=== PATIENT | male | born 1960 | race Caucasian/White ===

== ENCOUNTER 2020-11-02 10:49 | Outpatient (CLI) | payer MEDICARE, SELFPAY ==
--- NOTE | ~2020-11-02 | CT_ITS ---
EXAMINATION: CT chest wo con DATE: 11/02/2020 11:37 INDICATION: Pulmonary nodules/lesions TECHNIQUE: Computed tomography (CT) of the chest was performed without intravenous contrast. Automate d exposure control and iterative reconstruction technique were employed. Exam dose: 94.05 mGy-cm tot al exam DLP. COMPARISON: 11/05/2019 CT chest FINDINGS: Thoracic aortic and great vessel calcifications as well as coronary artery calcification. N o thoracic aortic aneurysm. Normal heart size. No pericardial or pleural effusion. Stable mild bilateral apical scarring. Mild emphysema. Bilateral primarily peripheral and apical bleb s. Stable irregular discoid likely scarring in the right upper lobe (series 4 images 29-34). Stable small middle lobe opacities (series 4 image 93) are noted peripherally, unchanged since 020 Stable 9 mm left lower lobe calcified pulmonary granuloma (series 4 image 75). Stable 12.5 mm left lower lobe calcified pulmonary granuloma (series 4 image 79). Very small hiatal hernia. Normal morphology of the adrenal glands. Lower cervical anterior cervical spine surgical fusion. Diffuse osteopenia. Degenerative spurring of the thoracic spine. No suspicious osteolytic or osteobla stic lesions are noted. IMPRESSION: No significant change since 11/05/2019; consider [address] chest follow-up Reviewed, dictated and finalized at Location [facility]. Reviewed, dictated and finalized at location B. RAL ACCOUNTING MANAGER
== END 2020-11-02 10:50 | disposition home or self-care (01) ==
PROVIDERS: PCP Family Medicine; Visit Provider Internal Medicine Medical Oncology
DX: R91.8 Other nonspecific abnormal finding of lung field (principal)
CPT/HCPCS: 71250

== ENCOUNTER → 2023-03-22 09:38 | Outpatient (CLI) | payer MEDICARE, SELFPAY ==
--- NOTE | ~2023-03-22 | MR_ITS ---
EXAMINATION: MR brain/brain stem wo con DATE: 03/22/2023 10:18 INDICATION: Memory disturbance. Alteration of awareness. TECHNIQUE: Magnetic resonance imaging (MRI) of the brain and brainstem was performed without intraven ous contrast. COMPARISON: None. FINDINGS: There are scattered areas of nonspecific increased T2-weighted signal intensity in the cere bral white matter, which is within normal limits for the patient's age. There is an old lacunar infar ct in the left basal ganglia. There is no intracranial hemorrhage, acute infarction, or abnormal intr acranial mass lesion. The ventricles are normal in size. There are likely changes of ocular lens repl acement surgeries. The paranasal sinuses are clear. The mastoid air cells are normal. IMPRESSION: 1. Old lacunar infarct in the left basal ganglia. Reviewed, dictated and finalized at location A.
== END ==
PROVIDERS: PCP Nurse Practitioner; Visit Provider Nurse Practitioner
DX: R41.3 Other amnesia (principal)
CPT/HCPCS: 70551

== ENCOUNTER → 2023-07-10 12:36 | Outpatient (CLI) | payer MEDICARE, SELFPAY ==
--- NOTE | ~2023-07-10 | XR_ITS ---
EXAMINATION: XR lumbar spine 2-3V DATE: 07/10/2023 13:42 INDICATION: Low back pain TECHNIQUE: Anteroposterior and lateral views of the lumbar spine, and cone-down lateral view of the l umbosacral junction were obtained. COMPARISON: None. FINDINGS: There are 5 mm of retrolisthesis of L5 on S1. Vertebral body alignment is otherwise normal. There is no fracture. There is severe loss of intervertebral disc space height at L4-5 and L5-S1. Sm all degenerative osteophytes project from the anterior endplates of multiple vertebral bodies. There is severe facet joint osteoarthritis of the lower lumbar spine. Calcified atherosclerosis is noted. IMPRESSION: 1. Severe lower lumbar spondylosis without acute findings. Reviewed, dictated and finalized at location F.
--- NOTE | ~2023-07-10 | MR_ITS ---
EXAMINATION: MR cervical spine wo con DATE: 07/10/2023 13:12 INDICATION: Neck pain. TECHNIQUE: Magnetic resonance imaging (MRI) of the cervical spine was performed without intravenous c ontrast. COMPARISON: Cervical spine MRI 06/14/2017 FINDINGS: There is 8 degrees levocurvature of thoracic spine. There is kyphosis of cervical spine. Th ere is 2 mm anterolisthesis of C3 on C4 and C4 on C5 and 2 mm retrolisthesis of C5 on C6. There are c hanges of anterior fusion procedure at C6-C7 with healed interbody bone graft and anterior plate and screws. There is moderately decreased disc height at C4-C5 and severely decreased disc height at C5-C 6 and C6 C7-T1. The spinal cord to intensity is normal. The following disc levels are specifically di scussed: C2-C3: The disc does not extend beyond the endplate margin. There is mild right uncovertebral joint o steoarthritis. There is severe bilateral facet joint osteoarthritis. There is mild bilateral neural f oraminal stenosis. There is no central canal stenosis. C3-C4: The disc does not extend beyond the endplate margin. There is moderate bilateral uncovertebral joint osteoarthritis. There is severe bilateral facet joint osteoarthritis. There is moderate bilate ral neural foraminal stenosis. There is no central canal stenosis. C4-C5: The disc is bulging. There is severe bilateral uncovertebral joint osteoarthritis. There is mo derate right and severe left facet joint osteoarthritis. There is mild left neural foraminal stenosis . There is mild central canal stenosis. There is ventral indentation of the spinal cord C5-C6: The disc is bulging. There is severe bilateral uncovertebral joint osteoarthritis. There is mi ld left facet joint osteoarthritis. There is moderate left neural foraminal stenosis. There is mild c entral canal stenosis with ventral indentation of spinal cord. C6-C7: There is moderate bilateral uncovertebral joint hypertrophy. There is no facet joint hypertrop hy. There is no neural foraminal stenosis. There is no central canal stenosis. C7-T1: The disc is bulging. There is severe bilateral uncovertebral joint osteoarthritis. There is mo derate and severe left facet joint osteoarthritis. There is mild bilateral neural foraminal stenosis. There is mild central canal stenosis. IMPRESSION: 1. Severe cervical spondylosis, worsened from 06/14/17. 2. Anterior fusion procedure at C6-C7. Reviewed, dictated and finalized at location A.
== END ==
PROVIDERS: PCP Family Medicine; Visit Provider Nurse Practitioner Family
DX: M47.896 Other spondylosis, lumbar region (principal); M47.892 Other spondylosis, cervical region; Z98.1 Arthrodesis status
CPT/HCPCS: 72100; 72141

== ENCOUNTER 2023-08-27 21:09 | Inpatient (IN) | payer MEDICARE, SELFPAY ==
[2023-08-27] VITALS (13 sets, daily range): BP systolic 112–134; BP diastolic 82–94; PULSE 80–109; RESP 18–20; TEMP 36.7–36.8; O2SAT 100
--- NOTE | ~2023-08-27 | XR_ITS ---
EXAMINATION: XR chest ET placement Exam Date/Time: 08/27/2023 21:20 CDT HISTORY: s/p intubation Comparison: CT chest 11/05/2019. RESULT: Lines, tubes, and devices: Endotracheal tube terminating 5.9 cm above the stella. NG tube terminatin g over the stomach. Lungs and pleura: Moderate reticular opacities diffusely in the right lung and in the left upper tiffany g. No focal consolidation. Cardiomediastinal silhouette: Stable. Other: No acute osseous or upper abdominal finding. IMPRESSION: Endotracheal tube terminates 5.9 cm above the stella, consider advancing 2 cm. Moderate asymmetric interstitial edema. Reviewed, dictated and finalized at location K.
--- NOTE | ~2023-08-27 | XR_ITS ---
EXAM: XR abdomen gastric tube insert DATE: 08/27/2023 21:31 HISTORY: NG TUBE . COMPARISON: None available. FINDINGS: NG tube tip over the stomach, side port at the GE junction. Clear lung bases. Normal bowel gas pattern. No organomegaly. No abnormal abdominal calcification. Regional bones and soft tissues no rmal for age. IMPRESSION: Shallow positioned NG tube, consider advancing 4 cm. Reviewed, dictated and finalized at location K.
--- NOTE | ~2023-08-27 | XR_ITS ---
EXAMINATION: XR chest 1V portable DATE: 08/29/2023 05:47 INDICATION: Acute respiratory failure. Cardiac arrest. Chronic obstructive pulmonary disease. TECHNIQUE: A single frontal view of the chest was obtained. COMPARISON: Chest single view 08/28/2023 FINDINGS: There are lucencies in the lungs, consistent with emphysema. A calcified left lung nodule i s consistent with old granulomatous disease. There is mild scarring in right lung upper lobe. No pleu ral effusion or pneumothorax. The heart size is normal. A right upper extremity peripherally inserted central venous catheter (PICC) is seen with tip in the superior vena cava. The endotracheal tube tip is 6.3 cm above the stella. The nasogastric tube tip is in the stomach. There are changes of anterio r fusion procedure in cervical spine. IMPRESSION: 1. Mild scarring in right lung upper lobe. 2. Emphysema. Reviewed, dictated and finalized at location E.
--- NOTE | ~2023-08-27 | XR_ITS ---
EXAMINATION: XR abdomen gastric tube rechec DATE: 08/28/2023 08:55 INDICATION: Orogastric tube advancement. TECHNIQUE: An upright view of the abdomen was obtained. COMPARISON: Abdomen radiograph 08/27/2023 FINDINGS: There are no dilated loops of bowel. The orogastric tube tip is in the stomach. A calcified left lung nodule is consistent with old granulomatous disease. IMPRESSION: 1. Orogastric tube tip in the stomach. Reviewed, dictated and finalized at location E.
--- NOTE | ~2023-08-27 | XR_ITS ---
EXAMINATION: XR chest 1V portable INDICATION: Acute respiratory failure TECHNIQUE: Portable AP chest at 0531 hours COMPARISON: 08/29/2023 FINDINGS: The endotracheal tube ends approximately 6.7 cm above the stella. The nasogastric tube is f ollowed as far as the stomach. Its tip is beyond the inferior margin of the radiograph. A right upper extremity PICC ends with its tip in the superior vena cava. The lungs are free of acute opacities. N o pleural effusion or pneumothorax. The cardiomediastinal silhouette is normal. A calcified nodule of the left midlung zone is consistent with old granulomatous disease. IMPRESSION: 1. No acute cardiopulmonary abnormality. Reviewed, dictated and finalized at location F.
--- NOTE | ~2023-08-27 | XR_ITS ---
EXAMINATION: XR chest 1V portable DATE: 08/28/2023 07:47 INDICATION: Respiratory failure. Cardiac arrest. TECHNIQUE: A single frontal view of the chest was obtained on 2 radiographs. COMPARISON: Chest view 08/27/2023, chest CT 11/02/20 FINDINGS: There are lucencies in the lungs, consistent with emphysema. There is mild scarring in righ t upper lobe. A calcified left lung nodule is consistent with old granulomatous disease. There is no pneumonia, pleural effusion, or pneumothorax. The heart size is normal. The endotracheal tube tip is 6.0 cm above the stella. The nasogastric tube tip is in the stomach. There are changes of anterior fu carroll procedure in cervical spine. IMPRESSION: 1. Mild scarring in right lung upper lobe. 2. Emphysema. Reviewed, dictated and finalized at location E.
--- NOTE | ~2023-08-27 | CT_ITS ---
EXAMINATION: CT brain wo con DATE: 08/28/2023 00:38 INDICATION: Cardiac arrest. TECHNIQUE: Computed tomography (CT) of the head was performed without intravenous contrast. The mA wa s adjusted according to patient size. Iterative reconstruction technique was employed. The dose-lengt h product was 605.33 mGy-cm. COMPARISON: Brain MRI 03/22/2023 FINDINGS: There is old lacunar infarct in the left basal ganglia. There is no intracranial hemorrhage , acute infarction, or abnormal intracranial mass lesion. The ventricles are normal in size. There ar e likely changes of ocular lens replacement surgeries. There is mild mucosal thickening in the parana torsten sinuses. The mastoid air cells are normal. IMPRESSION: 1. Old lacunar infarct in the left basal ganglia. Reviewed, dictated and finalized at location E.
--- NOTE | 2023-08-27 21:13 | PC.NURSE ---
Pt intubated by Dr. Mcguire at 2112 using 20 mg etomidate, 100 mg succ via verbal order. 7.5 tube inserted to 25 at the lip, placement verified by xray, chest rise and fall, and breath sounds.
--- NOTE | 2023-08-27 21:13 | ECG_ITS ---
Measurements Intervals [place] Rate: 103 P: 78 [place]: 176 QRS: -62 QRSD: 104 T: 76 QT: 324 QTc: 425 Interpretive Statements SINUS TACHYCARDIA VENTRICULAR TRIPLET AND VENTRICULAR PREMATURE COMPLEXES POSSIBLE LEFT ATRIAL ENLARGEMENT INCOMPLETE RIGHT BUNDLE BRANCH BLOCK LEFT ANTERIOR FASCICULAR BLOCK BASELINE WANDER- I, AVL, AVF ABNORMAL ECG NO PREVIOUS ECG AVAILABLE FOR COMPARISON Electronically Signed On 08-28-2023 8:16:55 CDT by Juvencio Guzman D.O.
[2023-08-27] MEDS: FENTANYL 2,500MCG/NS250ML(*CRX 2,500 MCG/250 ML BAG IV CONT (21:41)
[2023-08-27] MEDS: MIDAZOLAM 100MG/NS 100ML(*CRX) 100 MG/100 ML BAG IV CONT (21:41)
[2023-08-27 21:42] LABS: Hematocrit 44.9 % (42.0-52.0); Mean Corpuscular HGB Conc 31.2 g/dl (32-36); Mean Corpuscular Hemoglobin 31.5 pg (26-34); Mean Corpuscular Volume 100.9 fl (80-100); Mean Platelet Volume 11.9 fl (7.4-10.4); Platelet Count Result 263 k/mm3 (150-375); Red Blood Count 4.45 M/mm3 (4.6-6.20); Red Cell Distribution Width 13.8 % (11.5-14.5); White Blood Count 15.2 K/mm3 (4.5-10.0)
--- NOTE | 2023-08-27 21:43 | ED.CPR ---
HPI - CPR General Chief Complaint: Cardiac Arrest/CPR Stated Complaint: ROSC Time Seen by Provider: 08/27/23 21:17 History of Present Illness HPI narrative: Patient is a 62-year-old male presenting with cardiac arrest. History obtained from EMS. They state that his witnessed him become unresponsive and she started CPR. On EMSs arrival, he was in PEA. He received 2 rounds of epinephrine with ROSC. Supraglottic device placed and patient brought in. Further history limited secondary to acuity of condition. Related Data Home Medications Medication Instructions Recorded Confirmed albuterol sulfate 90 mcg/actuation 2 puff inhalation Q8H PRN 08/28/23 08/28/23 aerosol inhaler Shortness Of Breath Or Wheezing aspirin 325 mg tablet 325 mg PO DAILY 08/28/23 08/28/23 hydrocodone 7.5 mg-acetaminophen 1 tablet PO Q8H PRN Moderate Pain 08/28/23 08/28/23 325 mg tablet (Scale Score 5-6) ipratropium 0.5 mg-albuterol 3 mg 3 ml inhalation Q4H PRN Shortness 08/28/23 08/28/23 (2.5 mg base)/3 mL nebulization Of Breath soln metoprolol succinate 50 mg 50 mg PO DAILY 08/28/23 08/28/23 tablet,extended release 24 hr omeprazole 40 mg capsule,delayed 40 mg PO DAILY 08/28/23 08/28/23 release Allergies Allergy/AdvReac Type Severity Reaction Status Date / Time amoxicillin Allergy Hives Verified 08/28/23 07:45 oxycodone AdvReac Unknown Verified 08/27/23 22:20 Review of Systems Review of Systems: All systems reviewed & are unremarkable except as noted in HPI and below PMFSH Family History Family History Grandparent No problems noted. Father Lung cancer Mother Lung cancer Social History Social History Years smoked: 47 Smoking status: Current every day smoker Tobacco type: cigarettes Alcohol intake: never Substance use: never Substance use type: does not use Spiritual care concerns: No Exam Narrative: GENERAL: Unresponsive HEAD: Normocephalic, atraumatic. EYES: PERRLA and EOMI. ENT: Mucous membranes dry NECK: Supple. CHEST: I-gel in place, diffuse wheezing with each bagged breath HEART: Regular rate and rhythm. Normal peripheral pulses. ABDOMEN: Soft, nondistended EXTREMITIES: Normal range of motion. No edema. SKIN: Warm, dry, no rash. NEURO: Unresponsive PSYCH: Unresponsive Course Vital Signs Vital signs: Vital Signs Pulse Rate 109 H 08/27/23 21:03 Respiratory Rate 18 08/27/23 21:03 Temperature 102.1 F H 08/31/23 04:54 Pulse Rate 70 08/30/23 19:30 Respiratory Rate 18 08/30/23 18:00 Blood Pressure 145/85 H 08/30/23 18:00 Pulse Oximetry 82 L 08/30/23 19:30 Oxygen Delivery Room Air 08/30/23 19:27 Fraction of Inspired Oxygen 40 08/30/23 16:18 Procedures Intubation Intubation #1: Intubation Date: 08/27/23 Intubation Time: 21:49 sedative: Etomidate Mg Given: 20 paralytic: Succinylcholine Mg Given: 100 Laryngoscope: other (glidescope) Tube Size (cm): 7.5 Method of Intubation: orotracheal Number of Attempts: 1 Tube Secured Depth (cm): 25 Tube Secured Location: lips Tube Placement Confirmation: visualized tube passing through cords, equal breath sounds bilaterally, no breath sounds over epigastrium and confirmation by capnometry Patient Tolerated Procedure: well Intubation Complications: none Additional Comments: Chest x-ray with ET tube approximately 6 cm above the stella, ET tube advanced 2 cm MDM - Cardiac Arrest/CPR MDM Narrative Medical decision making narrative: Patient is a 62-year-old male presenting after cardiac arrest. On arrival, i-gel is in place. Diffuse wheezing with each bag breath. Patient intubated, please see procedure note below for further detail. He continues to have pulses and is maintaining an adequate blood pressure
[2023-08-27 21:52] LABS: Lipase 262 U/L (23-300); Magnesium 2.6 mg/dL (1.6-2.3); Prothrombin Time 13.5 Seconds (11.1-14.7)
[2023-08-27 21:53] LABS: Partial Thromboplastin Time 33.5 SECONDS (22.3-36.8)
[2023-08-27] MEDS: methylPREDNISolone SOD SUCC 125 MG VIAL IV PUSH (21:54)
[2023-08-27] MEDS: CEFEPIME 2 GM/NS 50 ML 2 GM/50 ML BAG IVPB (21:54)
[2023-08-27] MEDS: SODIUM CHLORIDE 0.9% IV 1,000 ML 999 ML IV CONT (21:57)
[2023-08-27 22:02] LABS: Lactic Acid Reflex 7.6 mmol/L (0.7-2.0); NT Pro B Type Natriuretic Pept 233 pg/mL (19.9-100)
[2023-08-27 22:03] LABS: Alanine Aminotransferase 48 U/L (6-50); Albumin Level 4.2 g/dL (3.5-5.1); Alkaline Phosphatase 69 U/L (38-126); Anion Gap 11 mmol/L (8-16); Aspartate Amino Transferase 66 U/L (17-59); Bilirubin,Total 0.5 mg/dL (0.2-1.3); Blood Urea Nitrogen 21 mg/dL (9-20); Calcium 9.1 mg/dL (8.4-10.2); Carbon Dioxide 25 mmol/L (22-30); Chloride 96 mmol/L (98-107); Estimated Glomerular Filt Rate > 60; Glucose 296 mg/dL (65-110); Potassium 8.9 mmol/L (3.4-5.0); Sodium 132 mmol/L (137-145)
[2023-08-27 22:04] LABS: Troponin I < 0.012 ng/mL (0.000-0.034)
[2023-08-27 22:08] LABS: Band Neutrophils Percent 4 % (0-6); Eosinophils Percent Manual 2 % (0-4); Large Platelets Present; Lymphocytes Absolute Manual 4.86 K/mm3 (1.1-4.5); Monocytes Absolute Manual 0.91 K/mm3 (0.1-0.90); Monocytes Percent Manual 6 % (3-9); Neutrophils Absolute Manual 9.12 K/mm3 (1.3-6.7); Neutrophils Percent Manual 56 % (46-73); Nucleated Red Blood Cells 1 %; Total Cells Counted 100
[2023-08-27 22:09] LABS: Platelet Estimate Adequate (Adequate); Schistocytes None Seen (NORMAL)
[2023-08-27 22:10] LABS: Hypochromasia 1+ (NORMAL)
[2023-08-27] MEDS: ALBUTEROL SULFATE NEB 2.5 MG/3 ML INH 10 MG INHALATION (22:14)
[2023-08-27 22:15] LABS: Appearance Urine Clear (Clear); Bacteria Urine None Seen /hpf; Bilirubin Urine Negative (Negative); Blood Urine Trace (Negative); Color Urine Yellow (Yellow); Glucose Urine UA Negative (Negative); Hyaline Casts Urine Present /lpf; Ketones Urine Negative (Negative); Leukocyte Esterase Ur Negative LEU/UL (Negative); Nitrate Urine Negative (Negative); Protein Urine 1+ mg/dL (Negative); Specific Grav Ur 1.025 (1.001-1.035); Squamous Epithelial Cell Urine None seen /hpf (Few); WBC Urine 0-5 /hpf; pH Urine 5.5 (5.0-9.0)
[2023-08-27] MEDS: IPRATROPIUM BR 0.02% INH SOLN 0.5 MG/2.5 ML VIAL INHALATION (22:15)
[2023-08-27 22:16] LABS: Add Urine Microscopic? YES
[2023-08-27 22:20] LABS: Influenza A QL RT-PCR Negative (Negative); Influenza B QL RT-PCR Negative (Negative); SARS-CoV-2 RNA PCR Negative (Negative)
[2023-08-27 22:28] LABS: Base Excess ABG -5.5 mEq/l (+/-2.0); Fractional Inspired Oxygen 50 %; HCO3 ABG 23.6 mEq/l (22.0-26.0); Oxygen Content ABG 18.1 %vol (16.0-22.0); Oxygen Saturation ABG 98.2 % (95.0-100.0); Oxyhemoglobin 94.8 % THb (90.0-100.0); PO2 ABG 141.9 mmHg (80.0-100.0); PO2 FiO2 Ratio Arterial Blood 2.84 %; Total Hemoglobin 13.4 g/dL (12.0-18.0)
[2023-08-27 22:30] LABS: pH ABG 7.192 (7.350-7.450)
[2023-08-27 22:31] LABS: Arterial Blood Gas PEEP 5 cmH2O; Arterial Blood Gas Tidal Volume 450 ml; Arterial Blood Gas Vent Mode CMV; Arterial Blood Gas Ventilator rate 18 /MIN; Device VENTILATOR; PCO2 ABG 62.8 mmHg (35.0-45.0); Site Drawn RIGHT BRACHIAL
[2023-08-27] MEDS: INSULIN HUMAN REGULAR (*BKC) 100 UNITS/ML 10 UNITS IV PUSH (22:35)
[2023-08-27] MEDS: SODIUM POLYSTYRENE SULFONONATE 15 GM/60 ML BTL 30 GM PO (22:35)
[2023-08-27] MEDS: CALCIUM GLUCONATE 1,000 MG/10 ML VIAL 1000 MG IV PUSH (22:35)
[2023-08-27] MEDS: SODIUM BICARBONATE 8.4% 50 MEQ/50 ML SYRINGE IV PUSH (22:35)
[2023-08-27] MEDS: DEXTROSE 50% 25 GM/50 ML SYRINGE IV PUSH (22:35)
[2023-08-27] MEDS: FUROSEMIDE INJ 40 MG/4 ML VIAL IV PUSH (23:04)
[2023-08-27 23:11] LABS: Glucose Point of Care 216 mg/dl (65-105)
--- NOTE | 2023-08-27 23:27 | PC.NURSE ---
Report given to MAHAD Delarosa. Care of pt transferred, all questions addressed.
[2023-08-28] VITALS (47 sets, daily range): BP systolic 90–162; BP diastolic 55–104; PULSE 77–111; RESP 12–29; TEMP 36.4–38; O2SAT 93–100; BMI 21.2; BMI 21.3
--- NOTE | 2023-08-28 | ECHO_ITS ---
Patient Info Name: Brent Sandoval Age: 62 years : 1960 Gender: Male Ht: 68 in Wt: 139 lbs BSA: 1.74 m2 HR: 78 bpm BP: 119 / 55 mmHg Heart Rhythm: Sinus Rhythm Technical Quality: Fair Exam Date: 08/28/2023 10:52 AM Exam Location: Echo Lab Exam Room: ICU1 Patient Status: Inpatient Admit Date: 08/28/2023 Staff Ordering Physician: Will Borja MD Waste Transportation Technician: Fabiola Bland RDCS Attending Provider: Vandana Elizalde MD Referring Physician: Jonh QUAN; Exam Type: CA echo doppler color flow Study Info Indications - S/P CARDIAC ARREST Complete two-dimensional, color flow and Doppler transthoracic echocardiogram is performed. Summary 1. Complete two-dimensional, color flow and Doppler transthoracic echocardiogram is performed. 2. Left ventricular chamber dimension is normal. 3. Left ventricular systolic function is normal, estimated at 65-70%. 4. Left ventricular septal wall motion is abnormal with septal motion related to bundle branch block. 5. The left ventricular diastolic function is grade I diastolic dysfunction. 6. Right ventricular systolic function is normal. 7. There is trace mitral valve regurgitation. 8. There is mild tricuspid valve regurgitation. Left Ventricle Left ventricular chamber dimension is normal. Left ventricular systolic function is normal, estimated at 65-70%. There is no increased left ventricular wall thickness. Left ventricular septal wall motion is abnormal with septal motion related to bundle branch block. The left ventricular diastolic function is grade I diastolic dysfunction. Right Ventricle Right ventricular chamber dimension is normal. Right ventricular systolic function is normal. Left Atria Left atrial chamber dimension is normal. Right Atria Right atrial chamber dimension is normal. Aortic Valve The aortic valve is probable trileaflet. There is no aortic valve stenosis. There is no aortic valve regurgitation. There is mild aortic valve calcification. Pulmonic Valve The pulmonic valve is not well visualized. Mitral Valve There is trace mitral valve regurgitation. Tricuspid Valve There is mild tricuspid valve regurgitation. Pericardium/Pleural There is no pericardial effusion. Inferior Vena Cava Normal inferior vena cava with >50% collapse upon inspiration consistent with normal right atrial pressure, 3 mmHg. Aorta The aortic root size at the sinus of Valsalva is normal. Left Ventricular Outflow Tract Name Value Normal LVOT 2D LVOT Diameter 2.0 cm LVOT Doppler LVOT Peak Gradient 7 mmHg LVOT Mean Gradient 4 mmHg LVOT VTI 22 cm LVOT Stroke Volume 69 ml LVOT CO 18.9 l/min LVOT CI 10.9 l/min/m2 Pulmonic Valve Name Value Normal PV Doppler PV Peak Gradient 7 m
[2023-08-28 00:39] LABS: Reflex Lactic Acid Yes or No Add Lactic
[2023-08-28] MEDS: VANCOMYCIN 1,250 MG/NS 250 ML 1,250 MG/250 ML BAG 166.67 MG IVPB (01:00)
[2023-08-28] MEDS: SODIUM CHLORIDE 0.9% IV 1,000 ML 999 ML IV CONT (01:00)
[2023-08-28 01:28] LABS: Anion Gap 6 mmol/L (8-16); Blood Urea Nitrogen 25 mg/dL (9-20); Carbon Dioxide 31 mmol/L (22-30); Chloride 103 mmol/L (98-107); Estimated CRCL calculation 71 ml/min; Estimated Glomerular Filt Rate > 60; Glucose 86 mg/dL (65-110); Lactic Acid Reflex 2.9 mmol/L (0.7-2.0); Potassium 3.7 mmol/L (3.4-5.0); Sodium 140 mmol/L (137-145)
[2023-08-28 01:58] LABS: Troponin I < 0.012 ng/mL (0.000-0.034)
--- NOTE | 2023-08-28 01:59 | PM.IMHP ---
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 Patient was eventually intubated in the ER and spread glottic airway device removed, present treatment steroid antibiotic. Initial labs showed hyperkalemia of 8.2 the patient also got treatment for these. Currently sedated with stable vital signs. Review of Systems Review of Systems: Unable to obtain as patient is intubated and sedated however denied any other symptoms aside as documented in HPI [facility] Family History Family History (Updated 08/28/23 @ 04:05 by Kimberly Rocha RN) Grandparent No problems noted. Father Lung cancer Mother Lung cancer Social History Social History Years smoked: 47 Smoking status: Current every day smoker Tobacco type: cigarettes Alcohol intake: never Substance use: never Substance use type: does not use Spiritual care concerns: No Meds Home Medications and Allergies Home Medications Medication Instructions Recorded Confirmed Type albuterol sulfate 90 mcg/actuation 2 puff inhalation Q8H PRN 08/28/23 08/28/23 History aerosol inhaler Shortness Of Breath Or Wheezing hydrocodone 7.5 mg-acetaminophen 1 tablet PO Q8H PRN Moderate Pain 08/28/23 08/28/23 History 325 mg tablet (Scale Score 5-6) omeprazole 40 mg capsule,delayed 40 mg PO DAILY 08/28/23 08/28/23 History release Allergies Allergy/AdvReac Type Severity Reaction Status Date / Time amoxicillin Allergy Hives Verified 08/28/23 04:22 oxycodone AdvReac Unknown Verified 08/27/23 22:20 Vital Signs Vital Signs - 24 hr 08/27/23 21:41 08/27/23 21:41 08/27/23 21:31 Temperature 98.2 F Pulse Rate 95 95 99 Respiratory Rate 18 18 18 Blood Pressure Pulse Oximetry 100 Oxygen Delivery Fraction of Inspired Oxygen 08/27/23 21:45 08/27/23 21:48 08/27/23 21:55 Temperature 98.2 F 98.1 F Pulse Rate 93 95 88 Respiratory Rate 20 19 19 Blood Pressure 124/91 H 120/87 Pulse Oximetry 100 100 100 Oxygen Delivery Fraction of Inspired Oxygen 08/27/23 22:00 08/27/23 22:01 08/27/23 22:15 Temperature Pulse Rate 88 84 80 Respiratory Rate 18 18 18 Blood Pressure 112/86 Pulse Oximetry 100 100 Oxygen Delivery Fraction of Inspired Oxygen 08/27/23 22:20 08/27/23 22:32 08/27/23 22:34 Temperature Pulse Rate 86 104 H Respiratory Rate 18 18 Blood Pressure 120/82 Pulse Oximetry 100 Oxygen Delivery Mechanical Ventilation Fraction of Inspired Oxygen 40 08/27/23 23:52 08/28/23 01:01 08/28/23 01:55 Temperature 97.6 F Pulse Rate 94 93 88 Respiratory Rate 19 21 H 18 Blood Pressure 134/94 H 128/94 H 127/90 Pulse Oximetry 100 100 100 Oxygen Delivery Fraction of Inspired Oxygen Exam Narrative: GENERAL: Unresponsive, intubated and sedated HEAD: Normocephalic, atraumatic. EYES: PERRLA and EOMI. ENT:? Mucous membranes dry, ETT in place was secured NECK: Supple. CHEST: Mild bilateral expiratory wheeze HEART: Regular rate and rhythm. Normal peripheral pulses. ABDOMEN: Soft, nondistended EXTREMITIES: Normal range of motion.? No edema. SKIN: Warm, dry, no rash. NEURO: Unresponsive PSYCH: Unresponsive H&P: Results Labs Labs: Short CBC 08/27/23 Range/Units 21:32 WBC 15.2 H (4.5-10.0) K/mm3 Hgb 14.0 (14.0-18.0) g/dL Hct 44.9 (42.0-52.0) % Plt Count 263 (150-375) k/mm3 [facility] 08/27
[2023-08-28 02:30] LABS: Alveolar/Arterial O2 Gradient 210.8 mmHg; Base Excess ABG 0.9 mEq/l (+/-2.0); Fractional Inspired Oxygen 100 %; HCO3 ABG 28.2 mEq/l (22.0-26.0); Oxygen Content ABG 19.9 %vol (16.0-22.0); Oxygen Saturation ABG 99.8 % (95.0-100.0); Oxyhemoglobin 97.6 % THb (90.0-100.0); PCO2 ABG 56.4 mmHg (35.0-45.0); PO2 ABG 445.8 mmHg (80.0-100.0); PO2 FiO2 Ratio Arterial Blood 4.46 %; Site Drawn RIGHT BRACHIAL; Total Hemoglobin 13.6 g/dL (12.0-18.0); pH ABG 7.317 (7.350-7.450)
[2023-08-28 02:31] LABS: Arterial Blood Gas PEEP 5 cmH2O; Arterial Blood Gas Tidal Volume 450 ml; Arterial Blood Gas Vent Mode CMV; Arterial Blood Gas Ventilator rate 18 /MIN; Device VENTILATOR
[2023-08-28 02:55] LABS: Influenza A QL RT-PCR Negative (Negative); Influenza B QL RT-PCR Negative (Negative); SARS-CoV-2 RNA PCR Negative (Negative)
--- NOTE | 2023-08-28 03:02 | PC.NURSE ---
This patient, Brent Sandoval, was admitted to Intensive Care Unit-1. Patient/family oriented to hospital policies and general routines including ID bracelet, bed and alarms, visiting hours, pain management, procedures, bathroom and other care routines, personal items, smoking policy, room service/diet, and visiting hours. Information on how to activate the Rapid Response Team has been discussed. Patient/Family are encouraged to report perceived risks to care and to ask questions if they do not understand what they are told or what they should do.
[2023-08-28] MEDS: VANCOMYCIN 1,000 MG/NS 250 ML 1,000 MG/250 ML BAG 250 MG IVPB ×2 (03:15→13:37)
[2023-08-28] MEDS: SODIUM CHLORIDE 0.9% IV 1,000 ML 100 ML IV CONT (03:15)
[2023-08-28] MEDS: MIDAZOLAM HCL (*CRX) 2 MG/2 ML VIAL IV PUSH (03:24)
[2023-08-28 03:39] LABS: MRSA (PCR) NOT DETECTED (NOT DETECTE)
[2023-08-28 04:50] LABS: Alveolar/Arterial O2 Gradient 230.5 mmHg; Base Excess ABG 0.8 mEq/l (+/-2.0); Fractional Inspired Oxygen 50 %; HCO3 ABG 27.6 mEq/l (22.0-26.0); Oxygen Content ABG 17.9 %vol (16.0-22.0); Oxygen Saturation ABG 91.8 % (95.0-100.0); Oxyhemoglobin 92.4 % THb (90.0-100.0); PCO2 ABG 52.8 mmHg (35.0-45.0); PO2 ABG 66.6 mmHg (80.0-100.0); PO2 FiO2 Ratio Arterial Blood 1.33 %; Total Hemoglobin 13.8 g/dL (12.0-18.0); pH ABG 7.336 (7.350-7.450)
[2023-08-28 04:51] LABS: Device VENTILATOR; Modified Allen's Test Pass; Site Drawn LEFT BRACHIAL
[2023-08-28 04:52] LABS: Arterial Blood Gas PEEP 5 cmH2O; Arterial Blood Gas Tidal Volume 450 ml; Arterial Blood Gas Vent Mode CMV; Arterial Blood Gas Ventilator rate 18 /MIN
[2023-08-28 04:59] LABS: Basophils Absolute Auto 0.1 K/mm3 (0.0-0.1); Basophils Percent Auto 0.3 % (0.2-1.2); Hematocrit 38.7 % (42.0-52.0); Hemoglobin 12.5 g/dL (14.0-18.0); Immature Granulocyte Absolute 0.19 K/mm3 (0.00-0.031); Immature Granulocyte Percent A 0.9 % (0-0.5); Lymphocytes Absolute Auto 0.34 K/mm3 (0.9-3.2); Lymphocytes Percent Auto 1.7 % (18.3-44.2); Mean Corpuscular HGB Conc 32.3 g/dl (32-36); Mean Corpuscular Hemoglobin 31.3 pg (26-34); Mean Platelet Volume 11.6 fl (7.4-10.4); Monocytes Absolute Auto 0.5 K/mm3 (0.1-0.6); Monocytes Percent Auto 2.3 % (2.6-8.5); Neutrophils Percent Auto 94.8 % (45.5-73.1); Platelet Count Result 200 k/mm3 (150-375); Red Blood Count 3.99 M/mm3 (4.6-6.20); Red Cell Distribution Width 13.7 % (11.5-14.5); White Blood Count 20.1 K/mm3 (4.5-10.0)
[2023-08-28 05:30] LABS: Anion Gap 7 mmol/L (8-16); Blood Urea Nitrogen 26 mg/dL (9-20); Calcium 8.2 mg/dL (8.4-10.2); Carbon Dioxide 28 mmol/L (22-30); Chloride 104 mmol/L (98-107); Estimated CRCL calculation 83 ml/min; Estimated Glomerular Filt Rate > 60; Glucose 133 mg/dL (65-110); Potassium 3.6 mmol/L (3.4-5.0); Sodium 139 mmol/L (137-145)
[2023-08-28] MEDS: CEFEPIME 2 GM/NS 50 ML 2 GM/50 ML BAG IVPB ×3 (05:32→21:18)
[2023-08-28] MEDS: levETIRAcetam 1000MG/NACL100ML 1,000 MG/100 ML BAG 400 MG IVPB ×3 (06:14→16:58)
[2023-08-28 06:38] LABS: Troponin I < 0.012 ng/mL (0.000-0.034)
[2023-08-28] MEDS: methylPREDNISolone SOD SUCC 40 MG VIAL IV PUSH ×4 (08:11→23:53)
[2023-08-28] MEDS: ENOXAPARIN 40 MG/0.4 ML SYRINGE SUB-Q (08:11)
[2023-08-28] MEDS: PANTOPRAZOLE SODIUM IV 40 MG VIAL IV PUSH (08:11)
[2023-08-28] MEDS: ALBUTEROL SULFATE NEB 2.5 MG/3 ML INH INHALATION ×4 (08:29→20:38)
[2023-08-28] MEDS: IPRATROPIUM BR 0.02% INH SOLN 0.5 MG/2.5 ML VIAL INHALATION ×4 (08:29→20:37)
[2023-08-28] MEDS: LORazepam INJ (*CRX) 2 MG/ML VIAL IV PUSH ×2 (08:30→11:49)
--- NOTE | 2023-08-28 09:30 | WPDCNINT ---
Assessment and Plan Assessment and plan (1) Acute respiratory failure: Code(s): J96.00 - Acute respiratory failure, unspecified whether with hypoxia or hypercapnia Status: Acute Assessment and Plan: Acute respiratory illness likely related to COPD exacerbation, respiratory muscle weakness secondary to ALS, decreased cough response, pneumonia, -intubated on 08/27/2023 -on CMV mode of ventilation, peep of 5, 50% FiO2 -chest x-ray this morning: Mild scarring in right lung upper lobe.. Emphysema -continue cefepime and vancomycin (08/27) Sedated with fentanyl and Versed, maintain RASS of 0 -continue bronchodilators -add Pulmicort (2) Cardiac arrest: Code(s): I46.9 - Cardiac arrest, cause unspecified Status: Acute Assessment and Plan: Cardiac arrest with ROSC in around 22-24 minutes per documentation and per spouse. As soon as she found him unresponsive and not breathing, she started CPR for about 10 minutes before EMS arrived, and thereafter it took about 12-14 minutes for ROSC. EMS placed a supraglottic airway, was being bagged to the ER where he was intubated. -cardiac arrest could be related to respiratory as well as arrhythmia due to hyperkalemia -found to be hyperkalemic with a potassium of 8.9 which was treated and has normalized -EKG showed incomplete right bundle-branch block, sinus tachycardia, no ST elevations -troponins negative x3 -will consult Cardiology -obtain echocardiogram, -myoclonic jerks likely related to hypoxic injury. Continue Keppra and p.r.n. Ativan -neurology been consulted, will require EEG at some point and paste repeat brain CT (3) COPD exacerbation: Code(s): J44.1 - Chronic obstructive pulmonary disease with (acute) exacerbation Status: Acute Assessment and Plan: Patient has a history of COPD, shortness of breath at baseline, according the patient has had weakness of his respiratory muscle, decreased cough due to his ALS. -was found unresponsive secondary to not breathing and then went into a PEA arrest -continue mechanical ventilation, bronchodilators and steroids (4) ALS (amyotrophic lateral sclerosis): Code(s): G12.21 - Amyotrophic lateral sclerosis Status: Acute Assessment and Plan: Patient follows with Dr. Arcos at [facility] for neuromuscular disorder -was diagnosed with ALS on August 07, 2023 -weakness of upper extremities, possible respiratory muscle weakness (5) Hyperkalemia: Code(s): E87.5 - Hyperkalemia Status: Acute Assessment and Plan: Patient presented with hyperkalemia with a potassium level of 8.7 -hyperkalemia was treated in the ER -potassium levels have normalized, will continue to Plan DVT prophylaxis: Lovenox Stress ulcer prophylaxis: Protonix Nutrition: Will start tube feeds Code Status: Full code Critical Care Time Spent: 51 minutes Discussed with patient's and daughter at bedside and in rounds and updated on patient's condition and plan of care. I answered all the questions. Also discussed regarding code status, they will get back to me. Due to a high probability of clinically significant, life threatening deterioration, the patient required my highest level of preparedness to intervene emergently and I personally spent this critical care time directly and personally managing the patient. This critical care time included obtaining a history; examining the patient; pulse oximetry; ordering and review of studies; arranging urgent treatment with development of a management plan; evaluation of patient's response to treatment; frequent reassessment; and discussions with other providers. It was exclusive of separately billable procedures and treating other patients and teaching time. Please see Assessment and Plan section and the rest of the note for further information on patient assessment and treatment This dictation may have been done utilizing a voice krishan
[2023-08-28] MEDS: ACETAMINOPHEN ELIXIR 325 MG/10.15 ML UDC 650 MG PO (10:32)
[2023-08-28] MEDS: metroNIDAZOLE 500 MG/ISO 100ML 500 MG/100 ML BAG 100 MG IVPB ×2 (10:32→17:02)
[2023-08-28] MEDS: BUDESONIDE RESPULE NEB 0.5 MG/2 ML AMP INHALATION ×2 (12:27→20:37)
[2023-08-28] MEDS: MIDAZOLAM 100MG/NS 100ML(*CRX) 100 MG/100 ML BAG IV CONT (12:34)
[2023-08-28] MEDS: FENTANYL 2,500MCG/NS250ML(*CRX 2,500 MCG/250 ML BAG IV CONT (12:34)
[2023-08-28 13:23] LABS: Glucose Point of Care 210 mg/dl (65-105)
[2023-08-28] MEDS: VALPROIC ACID INJ 500 MG in DEXTROSE 5% 100 ML 100 MG IVPB ×3 (14:24→23:14)
--- NOTE | 2023-08-28 14:33 | PM.CNCAR ---
Assessment and Plan Assessment and plan (1) Cardiac arrest: Code(s): I46.9 - Cardiac arrest, cause unspecified Status: Acute Assessment and Plan: ROSC achieved after about 22-24 minutes. Noted to be in PEA by EMS ( had started CPR initially, rhythm at that time unknown). EKG shows sinus rhythm with RBBB but no STEMI. Troponins are negative x 3. Appears to be respiratory induced arrest rather than from an acute coronary syndrome. Did have hyperkalemia of 8.9 as well. Unclear reason for hyperkalemia as patient not on medications that would cause hyperkalemia. Does have myoclonic jerks on exam concerning for hypoxic brain injury. At this time, continue management as per ICU team. Will obtain echocardiogram. (2) Hyperkalemia: Code(s): E87.5 - Hyperkalemia Status: Acute Assessment and Plan: Resolved now. Unclear reason as to why he had hyperkalemia. (3) Acute respiratory failure: Code(s): J96.00 - Acute respiratory failure, unspecified whether with hypoxia or hypercapnia Status: Acute Assessment and Plan: Intubated, management as per ICU team. (4) ALS (amyotrophic lateral sclerosis): Code(s): G12.21 - Amyotrophic lateral sclerosis Status: Acute Assessment and Plan: Recent diagnosis in July 2023, follows with [facility]. Plan Recommendations/Plan discussed with Conference Organizer, Dr. Borja. History of Present Illness History of Present Illness Consult date/time: 08/28/23 14:33 Requesting physician: Will Borja MD Consult reason: Other (Cardiac Arrest) Reason For Visit: Cardiac Arrest Narrative: We are consulted for cardiac arrest. This is a 62 year old male with recently diagnosed ALS on July (followed at [place]), COPD, tobacco use who presented to [place] ER with cardiac arrest. Patient is intubated and sedated, therefore, unable to obtain any history from the patient. History obtained from the patient's brother at bedside, the medical team and medical chart. According to the brother, patient had gone out yesterday walking around outside looking for his dogs. When he got back home, he was really short of breath. The witnessed him become unresponsive and she started CPR. Upon EMS arrival, he was in PEA. He received 2 rounds of Epi with ROSC. Noted to have diffuse wheezing with each bag breath. Patient was intubated. EKG showed sinus tachycardia, RBBB, but no STEMI. He was found with hyperkalemia of 8.9. WBC is now 20. Initial pH 7.192, now improved to 7.336. Potassium is now down to 3.6. Initial lactate 7.6 which has improved to 2.9. Troponins are negative x 3. Head CT with old lacunar infarct in the left basal ganglia. Review of Systems Review of Systems: ROS unobtainable: Yes unobtainable due to endotracheal tube and unobtainable due to medical condition PMFSH Family History Family History Grandparent No problems noted. Father Lung cancer Mother Lung cancer Social History Social History Years smoked: 47 Smoking status: Current every day smoker Tobacco type: cigarettes Alcohol intake: never Substance use: never Substance use type: does not use Spiritual care concerns: No Meds Home Medications and Allergies Home Medications Medication Instructions Recorded Confirmed Type albuterol sulfate 90 mcg/actuation 2 puff inhalation Q8H PRN 08/28/23 08/28/23 History aerosol inhaler Shortness Of Breath Or Wheezing aspirin 325 mg tablet 325 mg PO DAILY 08/28/23 08/28/23 History hydrocodone 7.5 mg-acetaminophen 1 tablet PO Q8H PRN Moderate Pain 08/28/23 08/28/23 History 325 mg tablet (Scale Score 5-6) ipratropium 0.5 mg-albuterol 3 mg 3 ml inhalation Q4H PRN Shortness 08/28/23 08/28/23 History (2.5 mg base)/3 mL nebulization Of Breath soln metoprolol succinate 50 mg 50 mg PO DAILY 08/28/23
[2023-08-28] MEDS: LIDOCAINE HCL 1% PF INJ 5 ML VIAL INFILTRATE (15:45)
[2023-08-28] MEDS: SODIUM CHLORIDE 0.9% IV 1,000 ML 75 ML IV CONT (17:06)
[2023-08-28 17:44] LABS: Glucose Point of Care 136 mg/dl (65-105)
--- NOTE | 2023-08-28 19:24 | PM.IMPN ---
Progress Note: A&P Assessment and Plan (1) ALS (amyotrophic lateral sclerosis): Code(s): G12.21 - Amyotrophic lateral sclerosis Status: Acute (2) Cardiac arrest: Code(s): I46.9 - Cardiac arrest, cause unspecified Status: Acute (3) Lactic acidosis: Code(s): E87.20 - Acidosis, unspecified Status: Acute (4) Hyperkalemia: Code(s): E87.5 - Hyperkalemia Status: Acute (5) COPD exacerbation: Code(s): J44.1 - Chronic obstructive pulmonary disease with (acute) exacerbation Status: Acute (6) Respiratory acidosis: Code(s): E87.29 - Other acidosis Status: Acute (7) Acute respiratory failure: Code(s): J96.00 - Acute respiratory failure, unspecified whether with hypoxia or hypercapnia Status: Acute Plan hyperkalemia is resolved. [facility] reports he takes many vitamins, they will bring them in for review. otherwise, he does take metoprolol at home which could have been culprit for hyperkalemia. would be cautious using this moving forward. he has hx of tobacco abuse, htn, and copd, but not CAD. added procalcitonin in am to help guide abx mgmt. he did spike temp in 100's. blood cultures pending, otherwise no source identified appreciate neurology input full code Subjective Date/time seen: 08/28/23 19:24 Interval history: pt intubated, history taken from sister in law at bedside, Yajaira Tabares. Review of Systems Review of Systems: ROS unobtainable: Yes unobtainable due to endotracheal tube Exam Const: General: no acute distress Other: RASS-3 Resp: Other: mech breath sounds, no crackles, ronchi identified Cardio: Rate: regular rate Rhythm: regular rhythm Heart sounds: no gallops, no murmurs and no rubs GI: GI Palp: Yes Soft to palpation Extrem: General: no edema Objective Data Vital Signs Vital Signs: Vital Signs - 24 hr 08/27/23 21:41 08/27/23 21:41 08/27/23 21:31 Temperature 98.2 F Pulse Rate 95 95 99 Respiratory Rate 18 18 18 Blood Pressure Pulse Oximetry 100 Oxygen Delivery Fraction of Inspired Oxygen 08/27/23 21:45 08/27/23 21:48 08/27/23 21:55 Temperature 98.2 F 98.1 F Pulse Rate 93 95 88 Respiratory Rate 20 19 19 Blood Pressure 124/91 H 120/87 Pulse Oximetry 100 100 100 Oxygen Delivery Fraction of Inspired Oxygen 08/27/23 22:00 08/27/23 22:01 08/27/23 22:15 Temperature Pulse Rate 88 84 80 Respiratory Rate 18 18 18 Blood Pressure 112/86 Pulse Oximetry 100 100 Oxygen Delivery Fraction of Inspired Oxygen 08/27/23 22:20 08/27/23 22:32 08/27/23 22:34 Temperature Pulse Rate 86 104 H Respiratory Rate 18 18 Blood Pressure 120/82 Pulse Oximetry 100 Oxygen Delivery Mechanical Ventilation Fraction of Inspired Oxygen 40 08/27/23 23:52 08/28/23 01:01 08/28/23 01:55 Temperature 97.6 F Pulse Rate 94 93 88 Respiratory Rate 19 21 H 18 Blood Pressure 134/94 H 128/94 H 127/90 Pulse Oximetry 100 100 100 Oxygen Delivery Fraction of Inspired Oxygen 08/28/23 02:32 08/28/23 03:06 08/28/23 03:07 Temperature Pulse Rate 101 H 101 H Respiratory Rate 18 18 Blood Pressure Pulse Oximetry 100 Oxygen Delivery Mechanical Ventilation Fraction of Inspired Oxygen 50 08/28/23 02:57 08/28/23 03:32 08/28/23 04:00 Temperature 98.4 F 98.4 F Pulse Rate 101 H 99 100 Respiratory Rate 18 18 Blood Pressure 162/104 H 130/86 Pulse Oximetry 97 95 Oxygen Delivery Fraction of Inspired Oxygen 08/28/23 04:00 08/28/23 04:00 08/28/23 04:00 Temperature 98.5 F Pulse Rate 99 Respiratory Rate 18 Blood Pressure 132/89 Pulse Oximetry 98 Oxygen Delivery Mechanical Ventilation Fraction of Inspired Oxygen 50 50 08/28/23 04:55 08/28/23 05:34 08/28/23 06:00 Temperature Pulse Rate 99 102 H 105 H Respiratory Rate 18 Blood Pressure Pulse Oximetry 98 Oxygen Delivery Mechanical Ventilation
[2023-08-28 20:43] LABS: Lactic Acid Reflex 1.5 mmol/L (0.7-2.0)
[2023-08-28] MEDS: MINERAL OIL/WHITE PETROLATUM OINTMENT 1 APPLIC EACH EYE (21:18)
[2023-08-28] MEDS: CENTRAL LINE FLUSH 10 ML IV PUSH (21:19)
[2023-08-28 23:54] LABS: Glucose Point of Care 172 mg/dl (65-105)
[2023-08-29] VITALS (45 sets, daily range): BP systolic 109–174; BP diastolic 64–97; PULSE 82–126; RESP 16–28; TEMP 37.3–37.7; O2SAT 92–96
[2023-08-29] MEDS: VANCOMYCIN 1,000 MG/NS 250 ML 1,000 MG/250 ML BAG 250 MG IVPB (00:28)
[2023-08-29] MEDS: levETIRAcetam 1000MG/NACL100ML 1,000 MG/100 ML BAG 400 MG IVPB ×3 (01:53→16:49)
[2023-08-29] MEDS: ACETAMINOPHEN ELIXIR 325 MG/10.15 ML UDC 650 MG PO ×2 (01:55→16:48)
[2023-08-29] MEDS: metroNIDAZOLE 500 MG/ISO 100ML 500 MG/100 ML BAG 100 MG IVPB ×3 (03:02→16:49)
[2023-08-29] MEDS: CENTRAL LINE FLUSH 10 ML IV PUSH ×3 (03:03→21:06)
[2023-08-29] MEDS: CEFEPIME 2 GM/NS 50 ML 2 GM/50 ML BAG IVPB ×3 (05:21→21:06)
[2023-08-29] MEDS: methylPREDNISolone SOD SUCC 40 MG VIAL IV PUSH ×4 (05:21→22:48)
[2023-08-29 05:27] LABS: Lactic Acid Reflex 1.7 mmol/L (0.7-2.0)
[2023-08-29 05:28] LABS: Alanine Aminotransferase 29 U/L (6-50); Albumin Level 3.1 g/dL (3.5-5.1); Alkaline Phosphatase 48 U/L (38-126); Anion Gap 3 mmol/L (8-16); Aspartate Amino Transferase 36 U/L (17-59); Bilirubin,Total 0.4 mg/dL (0.2-1.3); Blood Urea Nitrogen 32 mg/dL (9-20); Calcium 8.7 mg/dL (8.4-10.2); Carbon Dioxide 28 mmol/L (22-30); Chloride 107 mmol/L (98-107); Estimated CRCL calculation 83 ml/min; Estimated Glomerular Filt Rate > 60; Glucose 185 mg/dL (65-110); Magnesium 2.4 mg/dL (1.6-2.3); Phosphorus 2.4 mg/dL (2.5-4.5); Sodium 138 mmol/L (137-145)
[2023-08-29 05:34] LABS: Basophils Percent Auto 0.2 % (0.2-1.2); Hematocrit 34.6 % (42.0-52.0); Hemoglobin 10.9 g/dL (14.0-18.0); Immature Granulocyte Absolute 0.14 K/mm3 (0.00-0.031); Immature Granulocyte Percent A 0.8 % (0-0.5); Lymphocytes Absolute Auto 0.52 K/mm3 (0.9-3.2); Lymphocytes Percent Auto 3.1 % (18.3-44.2); Mean Corpuscular HGB Conc 31.5 g/dl (32-36); Mean Corpuscular Hemoglobin 31.6 pg (26-34); Mean Corpuscular Volume 100.3 fl (80-100); Mean Platelet Volume 12.2 fl (7.4-10.4); Monocytes Absolute Auto 0.8 K/mm3 (0.1-0.6); Monocytes Percent Auto 4.6 % (2.6-8.5); Neutrophils Absolute Auto 15.5 K/mm3 (1.3-6.7); Neutrophils Percent Auto 91.3 % (45.5-73.1); Platelet Count Result 177 k/mm3 (150-375); Red Blood Count 3.45 M/mm3 (4.6-6.20); Red Cell Distribution Width 14.4 % (11.5-14.5)
[2023-08-29 06:02] LABS: Procalcitonin 1.5 ng/mL
[2023-08-29 06:14] LABS: Alveolar/Arterial O2 Gradient 185.8 mmHg; Base Excess ABG 1.8 mEq/l (+/-2.0); Carboxyhemoglobin 0.3 % THb (0-2.0); Fractional Inspired Oxygen 45 %; HCO3 ABG 28.5 mEq/l (22.0-26.0); Methemoglobin ABG 0.3 %THb (0-1.5); Oxygen Content ABG 16.3 %vol (16.0-22.0); Oxygen Saturation ABG 93.6 % (95.0-100.0); Oxyhemoglobin 93.4 % THb (90.0-100.0); PCO2 ABG 54.5 mmHg (35.0-45.0); PO2 ABG 73.1 mmHg (80.0-100.0); PO2 FiO2 Ratio Arterial Blood 1.62 %; Total Hemoglobin 12.4 g/dL (12.0-18.0); pH ABG 7.337 (7.350-7.450)
[2023-08-29] MEDS: MIDAZOLAM 100MG/NS 100ML(*CRX) 100 MG/100 ML BAG 6 MG IV CONT ×2 (07:21→23:34)
[2023-08-29] MEDS: VALPROIC ACID INJ 500 MG in DEXTROSE 5% 100 ML 100 MG IVPB ×4 (07:25→22:48)
[2023-08-29] MEDS: IPRATROPIUM BR 0.02% INH SOLN 0.5 MG/2.5 ML VIAL INHALATION ×3 (07:48→20:03)
[2023-08-29] MEDS: ALBUTEROL SULFATE NEB 2.5 MG/3 ML INH INHALATION ×3 (07:48→20:03)
[2023-08-29] MEDS: BUDESONIDE RESPULE NEB 0.5 MG/2 ML AMP INHALATION ×2 (07:48→20:02)
[2023-08-29] MEDS: MINERAL OIL/WHITE PETROLATUM OINTMENT 1 APPLIC EACH EYE ×2 (08:27→21:07)
[2023-08-29] MEDS: PANTOPRAZOLE SODIUM IV 40 MG VIAL IV PUSH (08:27)
[2023-08-29] MEDS: ENOXAPARIN 40 MG/0.4 ML SYRINGE SUB-Q (08:27)
--- NOTE | 2023-08-29 08:54 | WPDINTPN ---
Progress Note: A&P Assessment and Plan (1) Acute respiratory failure: Code(s): J96.00 - Acute respiratory failure, unspecified whether with hypoxia or hypercapnia Status: Acute Assessment and Plan: Acute respiratory illness likely related to COPD exacerbation, respiratory muscle weakness secondary to ALS, decreased cough response, pneumonia, -intubated on 08/27/2023 -on CMV mode of ventilation, peep of 5, 50% FiO2 -chest x-ray this morning: Mild scarring in right lung upper lobe.. Emphysema -continue cefepime and vancomycin (08/27) Sedated with fentanyl and Versed, maintain RASS of 0 -will start weaning sedation to evaluate patient's neurological status -continue bronchodilators -continue Pulmicort (2) Cardiac arrest: Code(s): I46.9 - Cardiac arrest, cause unspecified Status: Acute Assessment and Plan: Cardiac arrest with ROSC in around 22-24 minutes per documentation and per spouse. As soon as she found him unresponsive and not breathing, she started CPR for about 10 minutes before EMS arrived, and thereafter it took about 12-14 minutes for ROSC. EMS placed a supraglottic airway, was being bagged to the ER where he was intubated. -cardiac arrest could be related to respiratory as well as arrhythmia due to hyperkalemia -found to be hyperkalemic with a potassium of 8.9 which was treated and has normalized -EKG showed incomplete right bundle-branch block, sinus tachycardia, no ST elevations -troponins negative x3 -appreciate cardiology evaluation and recommendation -myoclonic jerks likely related to hypoxic injury. Continue Keppra, valproic acid and p.r.n. Ativan -neurology been consulted, -EEG has been ordered (3) COPD exacerbation: Code(s): J44.1 - Chronic obstructive pulmonary disease with (acute) exacerbation Status: Acute Assessment and Plan: Patient has a history of COPD, shortness of breath at baseline, according the patient has had weakness of his respiratory muscle, decreased cough due to his ALS. -was found unresponsive secondary to not breathing and then went into a PEA arrest -continue mechanical ventilation, bronchodilators and steroids (4) ALS (amyotrophic lateral sclerosis): Code(s): G12.21 - Amyotrophic lateral sclerosis Status: Acute Assessment and Plan: Patient follows with Dr. Arcos at [facility] for neuromuscular disorder -was diagnosed with ALS on August 07, 2023 -weakness of upper extremities, possible respiratory muscle weakness (5) Hyperkalemia: Code(s): E87.5 - Hyperkalemia Status: Acute Assessment and Plan: Patient presented with hyperkalemia with a potassium level of 8.7 -hyperkalemia was treated in the ER -potassium levels have normalized, will continue to monitor Plan DVT prophylaxis: Lovenox Stress ulcer prophylaxis: Protonix Nutrition: Tolerating tube feeds Code Status: Full code Critical Care Time Spent: 34 minutes Discussed with patient's at bedside and in rounds and updated on patient's condition and plan of care. I answered all the questions. Due to a high probability of clinically significant, life threatening deterioration, the patient required my highest level of preparedness to intervene emergently and I personally spent this critical care time directly and personally managing the patient. This critical care time included obtaining a history; examining the patient; pulse oximetry; ordering and review of studies; arranging urgent treatment with development of a management plan; evaluation of patient's response to treatment; frequent reassessment; and discussions with other providers. It was exclusive of separately billable procedures and treating other patients and teaching time. Please see Assessment and Plan section and the rest of the note for further information on patient assessment and treatment This dictation may have been done utilizing a voice recognitio
--- NOTE | 2023-08-29 10:14 | PM.PNCARD ---
Progress Note: A&P Assessment and Plan (1) Cardiac arrest: Code(s): I46.9 - Cardiac arrest, cause unspecified Status: Acute Assessment and Plan: ROSC achieved after about 22-24 minutes. Noted to be in PEA by EMS ( had started CPR initially, rhythm at that time unknown). EKG shows sinus rhythm with RBBB but no STEMI. Troponins are negative x 3. Appears to be respiratory induced arrest rather than from an acute coronary syndrome. Did have hyperkalemia of 8.9 as well. Unclear reason for hyperkalemia as patient not on medications that would cause hyperkalemia. Does have myoclonic jerks on exam concerning for hypoxic brain injury. At this time, continue management as per ICU team. Echocardiogram was unremarkable. EEG pending. No further cardiac recommendations at this time. (2) Hyperkalemia: Code(s): E87.5 - Hyperkalemia Status: Acute Assessment and Plan: Resolved now. Unclear reason as to why he had hyperkalemia. (3) Acute respiratory failure: Code(s): J96.00 - Acute respiratory failure, unspecified whether with hypoxia or hypercapnia Status: Acute Assessment and Plan: Intubated, management as per ICU team. (4) ALS (amyotrophic lateral sclerosis): Code(s): G12.21 - Amyotrophic lateral sclerosis Status: Acute Assessment and Plan: Recent diagnosis in July 2023, follows with [facility]. Subjective Date/time seen: 08/29/23 10:14 Interval history: Reason for consult: Respiratory arrest leading to cardiac arrest, PEA with ROSC in around 22-24 minutes documentation and discussion with spouse 08/29/2023: Patient seen and examined the ICU, remains intubated. Family at bedside. Patient responsive. Seizure activity described. Review of Systems Review of Systems: ROS unobtainable: Yes unobtainable due to endotracheal tube and unobtainable due to medical condition Exam Const: Other: Critically ill patient, intubated/sedated HENMT: Other: OETT in place Resp: Other: On mechanical ventilation via OETT Cardio: Rate: regular rate Rhythm: regular rhythm Heart sounds: no murmurs Skin: General skin exam: normal color Neuro: Other: Unable to assess due to sedation Psych: Other: Unable to assess due to sedation Objective Data Vital Signs Vital Signs: Vital Signs - 24 hr 08/28/23 10:32 11/02/23 11:32 08/28/23 12:29 Temperature 37.9 C H 38.0 C H Pulse Rate 100 Respiratory Rate 29 H Blood Pressure Pulse Oximetry Oxygen Delivery Fraction of Inspired Oxygen 08/28/23 12:33 08/28/23 12:34 08/28/23 12:34 Temperature Pulse Rate 99 97 97 Respiratory Rate 19 19 Blood Pressure Pulse Oximetry 97 Oxygen Delivery Mechanical Ventilation Fraction of Inspired Oxygen 50 08/28/23 12:38 08/28/23 12:38 08/28/23 12:56 Temperature Pulse Rate 102 H 102 H 101 H Respiratory Rate 19 19 18 Blood Pressure Pulse Oximetry Oxygen Delivery Fraction of Inspired Oxygen 08/28/23 12:00 08/28/23 12:00 08/28/23 13:34 Temperature 37.9 C H Pulse Rate 103 H 96 Respiratory Rate 17 17 Blood Pressure 103/90 Pulse Oximetry 96 Oxygen Delivery Fraction of Inspired Oxygen 50 08/28/23 14:40 08/28/23 12:00 08/28/23 12:00 Temperature Pulse Rate 81 102 H Respiratory Rate Blood Pressure Pulse Oximetry 97 99 Oxygen Delivery Mechanical Ventilation Mechanical Ventilation Fraction of Inspired Oxygen 50 50 08/28/23 14:00 08/28/23 14:00 08/28/23 16:00 Temperature 37.5 C Pulse Rate 89 89 Respiratory Rate 18 Blood Pressure 90/58 L Pulse Oximetry 97 98 Oxygen Delivery Mechanical Ventilation Fraction of Inspired Oxygen 50 08/28/23 16:00 08/28/23 16:00 08/28/23 17:19 Temperature 36.9 C Pulse Rate 81 84 Respiratory Rate 12 18 Blood Pressure 96/63 L Pulse Oximetry 97 Oxygen Delivery Fraction of Inspired Oxygen 50
--- NOTE | 2023-08-29 11:23 | PCNFU ---
Nutrition Follow-Up Complete: Inadequate Oral Intake as related to mechanical ventilation as evidenced by NPO. Goal: Meet estimated nutritional needs. Patient is meeting goal. We will continue current goal. Pt current nutrition is Vital AF 1.2 at 60 ml/hr. Last recorded weight is 62.8 kg, down from 63.3 kg on admit. Bowel Motility:+BM reported 08/27 Labs Reviewed:Mg 2.4, Glu 185, BUN 32, Alb 3.1 Meds Noted:Keppra, Versed, Fentanyl, Vancomycin, Flagyl, Protonix Skin: WNL Additional Notes: Patient remains on mechanical vent and tube feedings of Vital AF 1.2 at 60 ml/hr and tolerating per nursing. Tube feedings are providing 1584 kcals/99 gms protein/1070 ml water. This is meeting 100% kcal needs at 25 kcal/kg and 100% protein needs at 1.4-1.6 gm/kg. Flush 30 ml q 4 hours. Agree with diet orders. Will monitor weight, labs, skin, meds, tube feeding tolerance every Friday and Friday.
[2023-08-29 12:11] LABS: Glucose Point of Care 174 mg/dl (65-105)
[2023-08-29 12:20] LABS: Vancomycin Trough 9.2 ug/mL (10.0-20.0)
[2023-08-29] MEDS: VANCOMYCIN 1,250 MG/NS 250 ML 1,250 MG/250 ML BAG 166.67 MG IVPB ×2 (14:14→21:06)
[2023-08-29 18:18] LABS: Glucose Point of Care 168 mg/dl (65-105)
[2023-08-29] MEDS: hydrALAZINE HCL 20 MG/ML VIAL 10 MG IV PUSH (22:48)
[2023-08-29 22:57] LABS: Glucose Point of Care 151 mg/dl (65-105)
[2023-08-30] VITALS (39 sets, daily range): BP systolic 113–164; BP diastolic 67–91; PULSE 58–123; RESP 12–21; TEMP 36.5–38.1; O2SAT 82–98
[2023-08-30] MEDS: PROPOFOL IV EMULSION 100 ML 1.88 MG IV CONT (00:12)
--- NOTE | 2023-08-30 00:18 | PC.NURSE ---
Patient became tachycardic with heart rate in the 120s to 130s around 2300. Blood pressure also elevated to 173/93 after 10 mg of Hydralazine IVP. Patient overbreathing ventilator with respirations of 26-30 breaths per minute. Sedation titrated per protocol. Vital signs did not improve. Blood pressure continued to be elevated at 171/89 and heart rate of 126 sinus tachycardia. Patient remains unresponsive with pinpoint and fixed pupils. Dr. Borja notified and orders received to initiate Propofol drip. Patient remains tachycardic at 118. Respiratory rate improved to 18 breaths per minute. Explained to in detail of patient's condition. Will continue to monitor.
[2023-08-30] MEDS: levETIRAcetam 1000MG/NACL100ML 1,000 MG/100 ML BAG 400 MG IVPB ×2 (02:39→09:00)
[2023-08-30] MEDS: metroNIDAZOLE 500 MG/ISO 100ML 500 MG/100 ML BAG 100 MG IVPB ×2 (02:39→09:31)
[2023-08-30 03:34] LABS: Triglycerides 88 mg/dL (<150)
[2023-08-30 05:29] LABS: Alveolar/Arterial O2 Gradient 153.3 mmHg; Base Excess ABG 4.3 mEq/l (+/-2.0); Carboxyhemoglobin 0.3 % THb (0-2.0); Fractional Inspired Oxygen 40 %; HCO3 ABG 31.2 mEq/l (22.0-26.0); Methemoglobin ABG 0.3 %THb (0-1.5); Oxygen Content ABG 16.1 %vol (16.0-22.0); Oxygen Saturation ABG 91.7 % (95.0-100.0); Oxyhemoglobin 92.1 % THb (90.0-100.0); PCO2 ABG 57.4 mmHg (35.0-45.0); PO2 ABG 65.9 mmHg (80.0-100.0); PO2 FiO2 Ratio Arterial Blood 1.65 %; Reduced Hemoglobin 7.3 %THb (0-5.0); Total Hemoglobin 12.4 g/dL (12.0-18.0); pH ABG 7.353 (7.350-7.450)
[2023-08-30 05:30] LABS: Arterial Blood Gas PEEP 5 cmH2O; Arterial Blood Gas Tidal Volume 450 ml; Arterial Blood Gas Vent Mode CMV; Arterial Blood Gas Ventilator rate 18 /MIN; Device VENTILATOR; Modified Allen's Test Unable to perform; Site Drawn RIGHT RADIAL
[2023-08-30] MEDS: CEFEPIME 2 GM/NS 50 ML 2 GM/50 ML BAG IVPB ×2 (05:46→13:01)
[2023-08-30] MEDS: methylPREDNISolone SOD SUCC 40 MG VIAL IV PUSH ×2 (05:46→12:00)
[2023-08-30] MEDS: VANCOMYCIN 1,250 MG/NS 250 ML 1,250 MG/250 ML BAG 166.67 MG IVPB ×2 (05:47→14:17)
[2023-08-30] MEDS: CENTRAL LINE FLUSH 10 ML IV PUSH ×2 (05:47→13:02)
[2023-08-30] MEDS: VALPROIC ACID INJ 500 MG in DEXTROSE 5% 100 ML 100 MG IVPB ×2 (05:47→12:00)
[2023-08-30 05:56] LABS: Basophils Percent Auto 0.1 % (0.2-1.2); Hemoglobin 11.5 g/dL (14.0-18.0); Immature Granulocyte Absolute 0.14 K/mm3 (0.00-0.031); Immature Granulocyte Percent A 0.8 % (0-0.5); Lymphocytes Absolute Auto 0.37 K/mm3 (0.9-3.2); Lymphocytes Percent Auto 2.2 % (18.3-44.2); Mean Corpuscular HGB Conc 31.1 g/dl (32-36); Mean Corpuscular Hemoglobin 31.5 pg (26-34); Mean Corpuscular Volume 101.4 fl (80-100); Mean Platelet Volume 11.8 fl (7.4-10.4); Monocytes Absolute Auto 0.9 K/mm3 (0.1-0.6); Monocytes Percent Auto 5.6 % (2.6-8.5); Neutrophils Absolute Auto 15.1 K/mm3 (1.3-6.7); Neutrophils Percent Auto 91.3 % (45.5-73.1); Platelet Count Result 177 k/mm3 (150-375); Red Blood Count 3.65 M/mm3 (4.6-6.20); Red Cell Distribution Width 14.5 % (11.5-14.5); White Blood Count 16.6 K/mm3 (4.5-10.0)
[2023-08-30 06:05] LABS: Lactic Acid Reflex 1.2 mmol/L (0.7-2.0)
[2023-08-30 06:07] LABS: Alanine Aminotransferase 25 U/L (6-50); Albumin Level 3.1 g/dL (3.5-5.1); Alkaline Phosphatase 48 U/L (38-126); Anion Gap -2 mmol/L (8-16); Aspartate Amino Transferase 42 U/L (17-59); Bilirubin,Total 0.4 mg/dL (0.2-1.3); Blood Urea Nitrogen 29 mg/dL (9-20); Calcium 9.2 mg/dL (8.4-10.2); Carbon Dioxide 37 mmol/L (22-30); Chloride 107 mmol/L (98-107); Estimated CRCL calculation 98 ml/min; Estimated Glomerular Filt Rate > 60; Glucose 162 mg/dL (65-110); Magnesium 2.6 mg/dL (1.6-2.3); Phosphorus 2.2 mg/dL (2.5-4.5); Potassium 3.9 mmol/L (3.4-5.0); Sodium 142 mmol/L (137-145)
[2023-08-30] MEDS: FUROSEMIDE INJ 40 MG/4 ML VIAL IV PUSH (07:52)
--- NOTE | 2023-08-30 07:52 | WPDINTPN ---
Progress Note: A&P Assessment and Plan (1) Acute respiratory failure: Code(s): J96.00 - Acute respiratory failure, unspecified whether with hypoxia or hypercapnia Status: Acute Assessment and Plan: Acute respiratory illness likely related to COPD exacerbation, respiratory muscle weakness secondary to ALS, decreased cough response, pneumonia, -intubated on 08/27/2023 -on CMV mode of ventilation, peep of 5, 40% FiO2 -chest x-ray this morning: Mild scarring in right lung upper lobe.. Emphysema -continue cefepime and vancomycin (08/27) Sedated with fentanyl and Versed, maintain RASS of 0 -propofol was added for ventilator dyssynchrony -08/30: Start Precedex infusion and wean propofol, fentanyl and Versed to off to allow the patient wake and assess his neurological status -weaning from the ventilator will ultimately depend on his neurological status -continue bronchodilators -continue Pulmicort -Lasix IV x1 today (2) Cardiac arrest: Code(s): I46.9 - Cardiac arrest, cause unspecified Status: Acute Assessment and Plan: Cardiac arrest with ROSC in around 22-24 minutes per documentation and per spouse. As soon as she found him unresponsive and not breathing, she started CPR for about 10 minutes before EMS arrived, and thereafter it took about 12-14 minutes for ROSC. EMS placed a supraglottic airway, was being bagged to the ER where he was intubated. -cardiac arrest could be related to respiratory as well as arrhythmia due to hyperkalemia -found to be hyperkalemic with a potassium of 8.9 which was treated and has normalized -EKG showed incomplete right bundle-branch block, sinus tachycardia, no ST elevations -troponins negative x3 -appreciate cardiology evaluation and recommendation -myoclonic jerks concerning for hypoxic injury. Continue Keppra, valproic acid and p.r.n. Ativan -neurology been consulted, -10/29: EEG done, pending results (3) COPD exacerbation: Code(s): J44.1 - Chronic obstructive pulmonary disease with (acute) exacerbation Status: Acute Assessment and Plan: Patient has a history of COPD, shortness of breath at baseline, according the patient has had weakness of his respiratory muscle, decreased cough due to his ALS. -was found unresponsive secondary to not breathing and then went into a PEA arrest -continue mechanical ventilation, bronchodilators and steroids (4) ALS (amyotrophic lateral sclerosis): Code(s): G12.21 - Amyotrophic lateral sclerosis Status: Acute Assessment and Plan: Patient follows with Dr. Arcos at [facility] for neuromuscular disorder -was diagnosed with ALS on August 07, 2023 -weakness of upper extremities, possible respiratory muscle weakness (5) Hyperkalemia: Code(s): E87.5 - Hyperkalemia Status: Acute Assessment and Plan: Patient presented with hyperkalemia with a potassium level of 8.7 -hyperkalemia was treated in the ER -potassium levels have normalized, will continue to monitor Plan DVT prophylaxis: Lovenox Stress ulcer prophylaxis: Protonix Nutrition: Tolerating tube feeds Code Status: Full code Critical Care Time Spent: 34 minutes Discussed with patient's at bedside and in rounds and updated on patient's condition and plan of care. I answered all the questions. 08/30:Discussed with son Thaddeus Sandoval, on the phone and updated with patient's condition and plan of care. I answered all his questions Due to a high probability of clinically significant, life threatening deterioration, the patient required my highest level of preparedness to intervene emergently and I personally spent this critical care time directly and personally managing the patient. This critical care time included obtaining a history; examining the patient; pulse oximetry; ordering and review of studies; arranging urgent treatment with development of a management plan; evaluation of patient's respon
[2023-08-30] MEDS: ENOXAPARIN 40 MG/0.4 ML SYRINGE SUB-Q (07:59)
[2023-08-30] MEDS: PANTOPRAZOLE SODIUM IV 40 MG VIAL IV PUSH (08:00)
[2023-08-30] MEDS: MINERAL OIL/WHITE PETROLATUM OINTMENT 1 APPLIC EACH EYE (08:01)
[2023-08-30] MEDS: BUDESONIDE RESPULE NEB 0.5 MG/2 ML AMP INHALATION (08:21)
[2023-08-30] MEDS: IPRATROPIUM BR 0.02% INH SOLN 0.5 MG/2.5 ML VIAL INHALATION ×2 (08:22→12:10)
[2023-08-30] MEDS: ALBUTEROL SULFATE NEB 2.5 MG/3 ML INH INHALATION ×2 (08:22→12:10)
[2023-08-30] MEDS: dexmedeTOMIDine 400 MCG/100 ML 400 MCG/100 ML BAG IV CONT (08:40)
--- NOTE | 2023-08-30 09:23 | PM.PNCARD ---
Progress Note: A&P Assessment and Plan (1) Cardiac arrest: Code(s): I46.9 - Cardiac arrest, cause unspecified Status: Acute Assessment and Plan: ROSC achieved after about 22-24 minutes. Noted to be in PEA by EMS ( had started CPR initially, rhythm at that time unknown). EKG shows sinus rhythm with RBBB but no STEMI. Troponins are negative x 3. Appears to be respiratory induced arrest rather than from an acute coronary syndrome. Did have hyperkalemia of 8.9 as well. Unclear reason for hyperkalemia as patient not on medications that would cause hyperkalemia. Potassium is normal today at 3.9. Does have myoclonic jerks on exam concerning for hypoxic brain injury. At this time, continue management as per ICU team. Echocardiogram was unremarkable. EEG pending. Resume metoprolol if needed. Patient was transiently tachycardic last night. (2) Hyperkalemia: Code(s): E87.5 - Hyperkalemia Status: Acute Assessment and Plan: Resolved now. Unclear reason as to why he had hyperkalemia. (3) Acute respiratory failure: Code(s): J96.00 - Acute respiratory failure, unspecified whether with hypoxia or hypercapnia Status: Acute Assessment and Plan: Intubated, management as per ICU team. (4) ALS (amyotrophic lateral sclerosis): Code(s): G12.21 - Amyotrophic lateral sclerosis Status: Acute Assessment and Plan: Recent diagnosis in July 2023, follows with [facility]. Subjective Date/time seen: 08/30/23 09:23 Interval history: Reason for consult: Respiratory arrest leading to cardiac arrest, PEA with ROSC in around 22-24 minutes documentation and discussion with spouse 08/30/2023: Patient seen and examined the ICU, remains intubated. Family at bedside. Patient unresponsive. Review of Systems Review of Systems: ROS unobtainable: Yes unobtainable due to endotracheal tube and unobtainable due to medical condition Exam Const: Other: Critically ill patient, intubated/sedated HENMT: Other: OETT in place Resp: Other: On mechanical ventilation via OETT Cardio: Rate: regular rate Rhythm: regular rhythm Heart sounds: no murmurs Skin: General skin exam: normal color Neuro: Other: Unable to assess due to sedation Psych: Other: Unable to assess due to sedation Objective Data Vital Signs Vital Signs: Vital Signs - 24 hr 08/29/23 09:55 08/29/23 10:00 08/29/23 11:06 Temperature Pulse Rate 98 98 95 Respiratory Rate 18 17 Blood Pressure 146/76 H Pulse Oximetry 94 95 Oxygen Delivery Mechanical Ventilation Fraction of Inspired Oxygen 40 08/29/23 11:09 08/29/23 11:36 08/29/23 12:00 Temperature 37.5 C Pulse Rate 94 90 Respiratory Rate 18 Blood Pressure 132/72 Pulse Oximetry 95 95 Oxygen Delivery Mechanical Ventilation Fraction of Inspired Oxygen 40 40 08/29/23 12:00 08/29/23 14:00 08/29/23 14:00 Temperature 37.6 C H Pulse Rate 89 100 102 H Respiratory Rate 18 Blood Pressure 151/80 H Pulse Oximetry 95 Oxygen Delivery Fraction of Inspired Oxygen 08/29/23 14:23 08/29/23 14:29 08/29/23 14:30 Temperature Pulse Rate 102 H 102 H 103 H Respiratory Rate 19 18 Blood Pressure Pulse Oximetry 96 Oxygen Delivery Mechanical Ventilation Fraction of Inspired Oxygen 40 08/29/23 15:17 08/29/23 15:54 08/29/23 16:00 Temperature 37.7 C H Pulse Rate 107 H 112 H Respiratory Rate 20 18 Blood Pressure 141/85 H Pulse Oximetry 95 95 Oxygen Delivery Mechanical Ventilation Fraction of Inspired Oxygen 40 40 08/29/23 16:00 08/29/23 16:47 08/29/23 16:48 Temperature 37.7 C H Pulse Rate 113 H 112 H Respiratory Rate Blood Pressure Pulse Oximetry 95 Oxygen Delivery Mechanical Ventilation Fraction of Inspired Oxygen 40 08/29/23 17:48 08/29/23 18:00 08/29/23 18:00 Temperature 37.7 C H 37.7 C H Pulse Rate 95 96 Respiratory Rate
--- NOTE | 2023-08-30 11:56 | WPDNEUROLOGY ---
Neurology EEG Report General Information Date of Study: 08/29/23 TEST eeg DIAGNOSIS Status post cardiopulmonary arrest CONDITION OF RECORDING patient is in ICU on ventilator also unresponsive EEG NUMBER [id number] CLINICAL HISTORY 62 years old has been admitted to intensive care subsequent to the cardiopulmonary arrest and at present is on vent and also unresponsive. EEG DESCRIPTION Old record consists of bihemispheric, low voltage triphasic waves almost every 2 to 3 seconds alternating with very low-voltage activity for 2 to 3 seconds. Regular EKG artifact is noted throughout the tracing. Nonfocal . Nonlateralizing. IMPRESSION Severely abnormal record due to the absence of the normal cortical activity and also due to the presence of triphasic regular waves. Clinical correlation recommended these abnormalities are suggestive of severe cerebral insult. This EEG is not compatible with no cortical activity.
[2023-08-30 12:01] LABS: Glucose Point of Care 144 mg/dl (65-105)
[2023-08-30 13:07] LABS: Vancomycin Trough 16.2 ug/mL (10.0-20.0)
--- NOTE | 2023-08-30 13:14 | WPDNEURCNPN ---
Assessment and Plan Assessment and plan (1) ALS (amyotrophic lateral sclerosis): Code(s): G12.21 - Amyotrophic lateral sclerosis Status: Acute (2) Cardiac arrest: Code(s): I46.9 - Cardiac arrest, cause unspecified Status: Acute Plan 1. Status post cardiopulmonary arrest with comatose status and observed intermittent jerk with documented abnormal EEG which is not flat,2 clinical exam as described above, 3. Discussed with the family will continue the treatment as such and repeat the EEG on Friday. Consult date: 08/30/23 HPI: Brent Sandoval is a 62 year old male admitted to the hospital through the emergency room with history of cardiac arrest, information was obtained from the EMS initially reportedly his witnessed him becoming unresponsive and started the CPR he received 2 rounds of epinephrine with placement of the supraglottic device, his allergic to oxycodone initially he was unresponsive, vital signs were normal with pulse ox 100 he was afebrile and was being ventilated CBC was normal his potassium was 8.9 glucose 296 lactic acid 7.6 chest x-ray negative with endotracheal tube in place and CT scan documented lacunar infarct in left basal ganglia, as per the further information patient did have the history of difficulties in breathing from COPD, carried the diagnosis of ALS, has history of smoking for 47 years and currently everyday smoker but not alcohol intake allergic to amoxicillin and oxycodone and initial exam in the ER further documented unresponsive intubated sedated unable to move, admitted to ICU with fluctuating course neurology consultation obtained because of him being unresponsive and also abnormal EEG and also 's consideration whether to continue the treatment further or not, as per the information available from her he was able to ambulate, he was able to communicate, and this is a significant change and worsening, EEG was reviewed which was abnormal with triphasic waves every 4 to 5 seconds, has been seen by the material handler, and has been documented to have myoclonic jerks PMFSH Family History Family History Grandparent No problems noted. Father Lung cancer Mother Lung cancer Social History Social History Years smoked: 47 Smoking status: Current every day smoker Tobacco type: cigarettes Alcohol intake: never Substance use: never Substance use type: does not use Spiritual care concerns: No Meds Home Medications and Allergies Home Medications Medication Instructions Recorded Confirmed Type albuterol sulfate 90 mcg/actuation 2 puff inhalation Q8H PRN 08/28/23 08/28/23 History aerosol inhaler Shortness Of Breath Or Wheezing aspirin 325 mg tablet 325 mg PO DAILY 08/28/23 08/28/23 History hydrocodone 7.5 mg-acetaminophen 1 tablet PO Q8H PRN Moderate Pain 08/28/23 08/28/23 History 325 mg tablet (Scale Score 5-6) ipratropium 0.5 mg-albuterol 3 mg 3 ml inhalation Q4H PRN Shortness 08/28/23 08/28/23 History (2.5 mg base)/3 mL nebulization Of Breath soln metoprolol succinate 50 mg 50 mg PO DAILY 08/28/23 08/28/23 History tablet,extended release 24 hr omeprazole 40 mg capsule,delayed 40 mg PO DAILY 08/28/23 08/28/23 History release Allergies Allergy/AdvReac Type Severity Reaction Status Date / Time amoxicillin Allergy Hives Verified 08/28/23 07:45 oxycodone AdvReac Unknown Verified 08/27/23 22:20 Vital Signs Vital Signs - 24 hr 08/29/23 14:00 08/29/23 14:00 08/29/23 14:23 Temperature 37.6 C H Pulse Rate 100 102 H 102 H Respiratory Rate 18 19 Blood Pressure 151/80 H Pulse Oximetry 95 Oxygen Delivery Fraction of Inspired Oxygen 08/29/23 14:29 08/29/23 14:30 08/29/23 15:17 Temperature Pulse Rate 102 H 103 H 107 H Respiratory Rate 18 20 Blood Pressure Pulse Oximetry 96 95 Oxygen Delive
[2023-08-30] MEDS: LORazepam INJ (*CRX) 2 MG/ML VIAL IV PUSH ×4 (16:04→23:32)
[2023-08-30 17:16] LABS: Glucose Point of Care 155 mg/dl (65-105)
--- NOTE | 2023-08-30 17:24 | PC.NURSE ---
MIKA Hendrickson, here for end of life consult.
[2023-08-30] MEDS: MORPHINE SULFATE INJ (*CRX) 10 MG/ML AMP 5 MG IV PUSH (17:43)
[2023-08-30] MEDS: MORPHINE SULFATE (*CRX) 2 MG/ML INJ IV PUSH ×3 (19:05→23:32)
--- NOTE | 2023-08-30 19:18 | PM.IMPN ---
Progress Note: A&P Assessment and Plan (1) ALS (amyotrophic lateral sclerosis): Code(s): G12.21 - Amyotrophic lateral sclerosis Status: Acute (2) Cardiac arrest: Code(s): I46.9 - Cardiac arrest, cause unspecified Status: Acute (3) Hyperkalemia: Code(s): E87.5 - Hyperkalemia Status: Acute (4) Acute respiratory failure: Code(s): J96.00 - Acute respiratory failure, unspecified whether with hypoxia or hypercapnia Status: Acute Plan cardiac arrest over 22 minutes. EEG representing severe cerebral insult. family currently considering withdrawal of care. no suggested changes to current therapy per neurology cardiology and cryptologic supervisor Subjective Date/time seen: 08/30/23 19:18 Interval history: family planning to withdraw care, following along Review of Systems Review of Systems: ROS unobtainable: Yes unobtainable due to endotracheal tube Exam Const: General: comfortable and no acute distress Other: intubated, RASS - 5 Resp: Other: mech breath sounds Cardio: Rate: regular rate Rhythm: regular rhythm Extrem: General: no edema Objective Data Vital Signs Vital Signs: Vital Signs - 24 hr 08/29/23 20:03 08/29/23 20:05 08/29/23 20:14 Temperature Pulse Rate 106 H 101 H 100 Respiratory Rate 19 18 Blood Pressure Pulse Oximetry 94 Oxygen Delivery Mechanical Ventilation Fraction of Inspired Oxygen 40 08/29/23 20:00 08/29/23 20:00 08/29/23 20:09 Temperature 99.8 F H Pulse Rate 104 H 100 Respiratory Rate 17 16 Blood Pressure 174/97 H Pulse Oximetry 94 Oxygen Delivery Fraction of Inspired Oxygen 40 08/29/23 20:10 08/29/23 20:00 08/29/23 20:00 Temperature Pulse Rate 101 H 106 H 100 Respiratory Rate 16 18 Blood Pressure Pulse Oximetry 94 Oxygen Delivery Mechanical Ventilation Fraction of Inspired Oxygen 40 08/29/23 22:00 08/29/23 22:00 08/29/23 22:00 Temperature 99.5 F Pulse Rate 108 H 108 H 105 H Respiratory Rate 18 18 Blood Pressure 169/96 H Pulse Oximetry 94 Oxygen Delivery Fraction of Inspired Oxygen 08/29/23 23:10 08/29/23 23:25 08/29/23 22:00 Temperature Pulse Rate 111 H 126 H 105 H Respiratory Rate 24 H 28 H 18 Blood Pressure Pulse Oximetry Oxygen Delivery Fraction of Inspired Oxygen 08/29/23 23:10 08/29/23 23:34 08/29/23 23:34 Temperature Pulse Rate 111 H 126 H 124 H Respiratory Rate 24 H 21 H 20 Blood Pressure Pulse Oximetry Oxygen Delivery Fraction of Inspired Oxygen 08/30/23 00:12 08/30/23 00:00 08/30/23 00:00 Temperature 99.6 F Pulse Rate 121 H 120 H Respiratory Rate 20 18 Blood Pressure 164/91 H Pulse Oximetry 92 Oxygen Delivery Fraction of Inspired Oxygen 40 08/30/23 00:00 08/30/23 00:31 08/30/23 00:30 Temperature Pulse Rate 121 H 122 H 121 H Respiratory Rate 20 20 19 Blood Pressure Pulse Oximetry 93 Oxygen Delivery Mechanical Ventilation Fraction of Inspired Oxygen 40 08/30/23 00:00 08/29/23 23:15 08/30/23 00:00 Temperature Pulse Rate 123 H 121 H 123 H Respiratory Rate 21 H Blood Pressure Pulse Oximetry 92 Oxygen Delivery Mechanical Ventilation Fraction of Inspired Oxygen 40 08/30/23 02:00 08/30/23 02:00 08/30/23 01:00 Temperature 100.1 F H Pulse Rate 103 H 103 H 113 H Respiratory Rate 18 18 Blood Pressure 129/71 Pulse Oximetry 93 Oxygen Delivery Fraction of Inspired Oxygen 08/30/23 02:15 08/30/23 02:16 08/30/23 02:16 Temperature Pulse Rate 103 H 103 H 103 H Respiratory Rate 18 18 18 Blood Pressure Pulse Oximetry Oxygen Delivery Fraction of Inspired Oxygen 08/30/23 04:00 08/30/23 04:02 08/30/23 04:02 Temperature Pulse Rate 96 96 99 Respiratory Rate 18 18 18 Blood Pressure Pulse Oximetry Oxygen Delivery Fraction of Inspired Oxygen 08/30/23 02:10 08/30/23 04:00 08/30/23 04:0
[2023-08-31] MEDS: MORPHINE SULFATE (*CRX) 2 MG/ML INJ IV PUSH ×3 (01:29→06:27)
[2023-08-31] MEDS: LORazepam INJ (*CRX) 2 MG/ML VIAL IV PUSH ×3 (01:31→06:26)
--- NOTE | 2023-08-31 01:59 | PC.NURSE ---
Daylight Savings Time For Daylight Savings Time Ending in the Fall - Clocks are moved back. For Daylight Savings Time Beginning in the Spring - Clocks are moved ahead. For [facility], the time of change occurs at 0200 hrs. Time is taken from the fire observer. This entry on the patient's chart recognizes the change in time reflected during documentation. Example: 2 entries for vital signs may be charted for 0200 hrs.
[2023-08-31 03:54] VITALS: TEMP 38.9
[2023-08-31] MEDS: IBUPROFEN IV 400 MG in SODIUM CHLORIDE 0.9% IV 100 ML 208 MG IVPB (03:54)
[2023-08-31 04:54] VITALS: TEMP 38.9
--- NOTE | 2023-08-31 11:03 | P.DN_ITS ---
Discharge Summary Date and Time Date of : 08/31/23 Time of : 06:33 Provider Pronounced By: lawrence quinonez Probable Cause of Probable Cause of : hyperkalemia, ALS, cardiopulmonary arrest Summary Hospital Course: Pt w/ recent diagnosis of ALS had cardiac arrest at home with ROSC after 22 m inutes. Pt was intubated in ICU, EEG obtained which revealed severe cerebral insult. He had myoclonic jerks. Family decided to withdraw care and he was pronounced at 0633 on 08/31/23. Additional Data Confirmation of as documented by pronouncing clinician: Pupillary Reflex, Palpable Pulses, Response to Stimuli, Heart Tones and Breath Sounds Name of Provider Notified: meenakshi Time Provider Notified: 06:45 Provider Requests Autopsy: No Family Requests Autopsy: No Cushion Stuffer Notified: Yes Date [facility] Notified of : 08/31/23 Time [facility] Notified of : 06:51
[2023-09-02 11:50] LABS: Device VENTILATOR
[2023-09-02 11:51] LABS: Arterial Blood Gas PEEP 5 cmH2O; Arterial Blood Gas Tidal Volume 450 ml; Arterial Blood Gas Vent Mode CMV; Arterial Blood Gas Ventilator rate 18 /MIN
== END 2023-08-31 06:33 | disposition expired | DRG 208 ==
LOC: ANHED 21:23 → ANHICU 08-28 02:25
PROVIDERS: Internal Medicine; Admitting Provider Student in an Organized Health Care Education/Training Program; Emergency Provider Emergency Medicine; PCP Family Medicine; Visit Provider General Practice
DX: J96.01 Acute respiratory failure with hypoxia (principal); G12.21 Amyotrophic lateral sclerosis; E87.21 Acute metabolic acidosis; J44.1 Chronic obstructive pulmonary disease with (acute) exacerbation; I46.8 Cardiac arrest due to other underlying condition; J96.02 Acute respiratory failure with hypercapnia; Z20.822 Contact with and (suspected) exposure to COVID-19; F17.210 Nicotine dependence, cigarettes, uncomplicated; E87.5 Hyperkalemia
CPT/HCPCS: 31500; 36415; 36569; 36600; 70450; 71045; 80048; 80053; 80202; 81001; 82375; 82805; 82948; 83050; 83605; 83690; 83735; 83880; 84100; 84145; 84478; 84484; 85025; 85610; 85730; 87040; 87070; 87205; 87636; 87641; 93005; 93306; 94002; 94003; 94640; 95816; 96361; 96365; 96367; 96375; 99285; A9270; C9113; J0330; J0360; J0612; J0692; J1650; J1741; J1815; J1836; J1940; J1953; J2060; J2250; J2270; J2704; J2920; J2930; J3010; J3370; J7030